=== PATIENT | female | born 1945 | race Caucasian/White ===

== ENCOUNTER 2017-07-31 08:15 | Emergency (ER) | payer MEDICARE ==
[2017-07-31 08:58] VITALS: BP 150/91
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
== END 2017-07-31 10:15 | disposition home or self-care (01) ==
LOC: UCCORT 08:15
DX: J02.9 Acute pharyngitis, unspecified (principal); J01.90 Acute sinusitis, unspecified; Z88.0 Allergy status to penicillin; Z88.3 Allergy status to other anti-infective agents
CPT/HCPCS: 87502; 87651; 99212; G0463

== ENCOUNTER 2017-08-16 10:13 | Emergency (ER) | payer MEDICARE ==
[2017-08-16 10:58] VITALS: BP 151/66
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
== END 2017-08-16 12:41 | disposition home or self-care (01) ==
LOC: UCCORT 10:13
DX: R05 Cough (principal); Z88.0 Allergy status to penicillin; Z88.3 Allergy status to other anti-infective agents
CPT/HCPCS: 99212; G0463

== ENCOUNTER 2018-12-31 11:22 | Emergency (ER) | payer MEDICARE ==
[2018-12-31 11:57] VITALS: BP 126/61
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
== END 2018-12-31 13:24 | disposition home or self-care (01) ==
LOC: UCCORT 11:22
DX: M25.562 Pain in left knee (principal); Z86.718 Personal history of other venous thrombosis and embolism; Z79.01 Long term (current) use of anticoagulants; I10 Essential (primary) hypertension; Z88.1 Allergy status to other antibiotic agents; Z88.0 Allergy status to penicillin
CPT/HCPCS: 99211; G0463